=== PATIENT | male | born 1990 | race Caucasian/White ===

== ENCOUNTER 2019-03-08 11:42 | Emergency (ER) | payer MEDICAID, OTHER ==
[~2019-03-08] VITALS: Ht 167.6 cm; Wt 86.4 kg
[2019-03-08] MEDS ORDERED: pain med PO (11:46)
[2019-03-08 12:42] VITALS: BP 124/77
[2019-03-08] MEDS ORDERED: METHOCARBAMOL 500 MG TABLET PO ONE (12:45)
[2019-03-08] MEDS ORDERED: LIDOCAINE 5% TRANSDERMAL PATCH TD ONE (12:45)
== END 2019-03-08 13:10 | disposition home or self-care (01) ==
LOC: EMS 11:43
DX: S39.012A Strain of muscle, fascia and tendon of lower back, initial encounter (principal); X50.1XXA Overexertion from prolonged static or awkward postures, initial encounter; Y93.89 Activity, other specified; Y92.89 Other specified places as the place of occurrence of the external cause; Y99.8 Other external cause status